=== PATIENT | male | born 1980 | race Caucasian/White ===

== ENCOUNTER 2018-03-04 09:40 | Emergency (ER) | payer SELFPAY ==
[2018-03-04] MEDS ORDERED: Ketorolac INJ* 60 MG/2 ML VIAL IM ONE (11:26)
--- NOTE | 2018-03-04 11:46 | RAD ---
HISTORY: leg pain COMPARISONS: None relevant TECHNIQUE: Multiple transverse and longitudinal ultrasound images were obtained of the left lower extremity from the level of the common femoral vein inferiorly through to the infrapopliteal veins using grayscale, color Doppler, and spectral Doppler imaging with and without compression and with augmentation. Comparison images were obtained of the contralateral common femoral vein. FINDINGS: VEINS: There is reflux within the small saphenous vein with dilated varicosities. There is nonocclusive thrombus noted within the small saphenous vein. The remainder of the venous system of the left lower extremity is compressible throughout its course, with normal flow on color Doppler imaging and normal response to augmentation on spectral Doppler imaging. SOFT TISSUES: Unremarkable. OTHER FINDINGS: None. IMPRESSION: 1. NO LEFT LOWER EXTREMITY DEEP VEIN THROMBOSIS. 2. REFLUX INTO THE SMALL SAPHENOUS VEIN WITH NONOCCLUSIVE THROMBUS WITHIN THE SMALL SAPHENOUS VEIN.
--- NOTE | 2018-03-04 12:34 | ED ---
Lower Extremity - HPI Summary HPI Summary: This is macrina Stinson documenting for attending Dr. Fermin M.D. Pt is a 37 y/o M w/ c/o LLE soreness, pain and swelling. Pain is rated 7/10 on credit assessment analyst. Pt reports long Hx of issues with his leg but does note provide an exact time frame. He notes that at one point recently left leg was, "twice the size of the right" but his swelling has gone down a bit since last night. He also reports some ecchymosis in back left heel and pain in left thigh. Pt denies recent trauma, chills, fever, SOB, chest pain, N/V. Pain is worsened as day goes on and by ambulation. He believes he is beginning to experience pain in right leg as well. He has not taken anything for pain. Pt has no known allergies. - History of Current Complaint Chief Complaint: EDExtremityLower Stated Complaint: LT LEG SWELLING Time Seen by Provider: 03/04/18 10:04 Hx Obtained From: Patient Onset/Duration: Still Present Severity Currently: Moderate Pain Intensity: 7 Pain Scale Used: 0-10 Numeric - 7/10 Timing: Lasting Weeks - "Long Hx of left leg issues" Location: Is Discrete @ - left leg, in room notes he might be starting to have some pain in right leg as well Aggravating Factor(s): Ambulation, Other - Pain is worsened throughout the day Alleviating Factor(s): Nothing - Allergies/Home Medications Allergies/Adverse Reactions: Allergies Allergy/AdvReac Type Severity Reaction Status Date / Time No Known Allergies Allergy Verified 03/04/18 09:58 PMH/Surg Hx/FS Hx/Imm Hx Sensory History: Denies: Hx Legally Blind EENT History: Denies: Hx Deafness Infectious Disease History: No Infectious Disease History: Denies: Traveled Outside the [place] in Last 30 Days - Family History Known Family History: Negative: Blood Disorder - Social History Alcohol Use: None Substance Use Type: Reports: None Smoking Status (MU): Heavy Every Day Tobacco Smoker Review of Systems Negative: Fever, Chills Negative: Chest Pain Negative: Vomiting, Nausea Positive: Edema, Other - NEGATIVE: recent trauma POSITIVE: LLE pain, RLE pain believed to be beginning to onset, ecchymosis of left heel All Other Systems Reviewed And Are Negative: Yes Physical Exam - Summary Physical Exam Summary: GENERAL: Patient is a well developed and nourished male who is lying comfortable in the stretcher. Patient is not in any acute respiratory distress. HEAD AND FACE: Normocephalic EYES: PERRLA, EOMI x 2. EARS: Hearing grossly intact. MOUTH: Oropharynx within normal limits. NECK: Supple, trachea is midline, no adenopathy, no JVD, no carotid bruit. CHEST: Symmetric, no tenderness at palpation LUNGS: Clear to auscultation bilaterally. No wheezing or crackles. CVS: Regular rate and rhythm, S1 and S2 present, no murmurs or gallops appreciated. ABDOMEN: Soft, non-tender. Bowel sounds are normal. No abdominal abnormal pulsations. EXTREMITIES: Full ROM in all major joints, no edema, no cyanosis or clubbing. Tenderness to palpation in left calf area, no erythema, no edema. NEURO: Alert and oriented x 3. No acute neurological deficits. Speech is normal and follows commands. SKIN: Dry and warm Triage Information Reviewed: Yes Vital Signs On Initial Exam: Initial Vitals Temp Pulse Resp BP Pulse Ox 97.6 F 83 16 125/82 99 03/04/18 09:57 03/04/18 09:57 03/04/18 09:57 03/04/18 09:57 03/04/18 09:57 Vital Signs Reviewed: Yes Diagnostics - Vital Signs Vital Signs Temp Pulse Resp BP Pulse Ox 03/04/18 09:57 97.6 F 83 16 125/82 99 - Laboratory Lab Statement: Any lab studies that have been ordered have been reviewed, and results considered in the medical decision making process. - Ultrasound No standard instances Ultrasound Interpretation: Positive (See Comments) Ultrasound Interpretation Completed By: Radiologist - No LLE DVT. Reflux into the small saphenous vein with nonocclusive thrombus within the small sapenous vein. This report was reviewed by ED physician. Re-Evaluation - Re-Evaluation First Eval Re-Evaluation Time: 12:27 Comment: Pt informed of diagnosis and told he would be discharged. Lower Extremity Course/Dx - Course Assessment/Plan: Pt is a 37 y/o M w/ c/o LLE soreness, pain and swelling. Pain is rated 7/10 on credit assessment analyst. Pt reports long Hx of issues with his leg but does not provide an exact time frame. He notes that at one point recently left leg was, "twice the size of the right" but his swelling has gone down a bit since last night. He also reports some ecchymosis in back left heel and pain in left thigh. Pt denies recent trauma, chills, fever, SOB, chest pain, N/V. Pain is worsened as day goes on and by ambulation. He believes he is beginning to experience pain in right leg as well. He has not taken anything for pain. Pt has no known allergies. Physical exam showed tenderness to palpation in left calf area, no erythema, no edema. A venous dopplar study showed no LLE DVT, but reflux into the small saphenous vein with nonocclusive thrombus within the small sapenous vein was noted. Pt was discharged to home with diagnosis of acute superficial vein thrombosis of LLE. - Diagnoses Provider Diagnoses: Acute superficial venous thrombosis of left lower extremity Discharge - Sign-Out/Discharge Documenting (check all that apply): Patient Departure - discharge - Discharge Plan Condition: Stable Disposition: HOME Prescriptions: Naproxen [Naproxen 500 mg tab] 500 mg PO BID #20 tablet. Patient Education Materials: Superficial Thrombophlebitis (ED), Deep Vein Thrombosis (ED) Referrals: [facility] [Outside] - 2 Days Additional Instructions: Return to ED for any new or worsening symptoms
[2018-03-04 12:50] VITALS: BP 133/82
== END 2018-03-04 12:49 | disposition home or self-care (01) ==
LOC: ED 09:40
DX: I82.812 Embolism and thrombosis of superficial veins of left lower extremity (principal); F17.200 Nicotine dependence, unspecified, uncomplicated
CPT/HCPCS: 96372; 99282; J1885